=== PATIENT | female | born 1945 | race Caucasian/White ===

== ENCOUNTER 2020-12-27 15:40 | Inpatient (IN) ==
[2020-12-27] MEDS ORDERED: IOPAMIDOL 100 ML BOTTLE IV ONE (15:41)
--- NOTE | 2020-12-27 16:13 | EKG ---
[facility] Test Date: 2020-12-27 Pat Name: Rhys Alexander Department: ED Room: Gender: Female Access Clerk: : 1945 Requested By: Emmett Peterson Order Number: [id number] Reading MD: Jagdish Hamilton M.D. Measurements Intervals [place] Rate: 74 P: 9 [place]: 145 QRS: -55 QRSD: 97 T: 67 QT: 376 QTc: 418 Interpretive Statements Sinus rhythm Left anterior fascicular block Abnormal R-wave progression, early transition NO PRIOR TRACING FOR COMPARISON Electronically Signed On 12-27-2020 16:13:11 PDT by Jagdish Hamilton M.D. /store/[email or web address]/[id number]
--- NOTE | 2020-12-27 16:26 | Emergency Department Note ---
Altered Mental Status HPI General Chief Complaint: Altered Mental Status Stated Complaint: altered LOC Time Seen by Provider: 12/27/20 15:45 Source: patient and EMS Mode of arrival: EMS Limitations: altered mental status History of Present Illness HPI Narrative: 75-year-old female is seen evaluated for altered mental status and weakness. Patient has a history of bipolar disorder and sees Dr. Laguna for medication management. She recently increased her duloxetine from 30 to 60 mg a day, and added gabapentin 300 mg twice a day. This is a new change since last week. She remains on a stable dose of methylphenidate 10 mg daily. Patient was in her usual state of health until around noon yesterday when her h usband noted that she became less responsive and seemed more confused. When they woke up this morning she was significantly weak, not following directions, and confused. She does have a tremor at baseline, and facial akathisia, and family states these have not changed. She takes a low-dose statin, but no additional risk factors for stroke. Her mother had a stroke. She does have hypothyroidism, and her daughter tells me that they have struggled to manage this. Related Data Home Medications Medication Instructions Recorded Confirmed lovastatin 20 mg tablet 20 mg PO QDAY tab 02/06/18 11/22/20 aspirin 81 mg tablet,delayed 81 mg PO QDAY 02/17/20 11/22/20 release levothyroxine 75 mcg PO QDAY 12/27/20 12/27/20 Previous Rx's Medication Instructions Recorded divalproex 500 mg tablet,delayed See Rx Instructions .ROUTE 12/14/20 release .COMPLEX #60 tab duloxetine 60 mg capsule,delayed 60 mg PO QDAY #30 cap 12/14/20 release gabapentin 300 mg capsule 300 mg PO BID #30 cap 12/14/20 methylphenidate HCl 10 mg 10 mg PO QAM #14 tab 12/27/20 tablet,extended release Allergies Allergy/AdvReac Type Severity Reaction Status Date / Time [place] Allergy Unknown Unknown Verified 11/22/20 15:34 aripiprazole [From Abilify] AdvReac Unknown manic Verified 11/22/20 15:34 episode lurasidone [From Latuda] AdvReac Unknown Unknown Verified 11/22/20 15:34 Penicillins AdvReac Unknown Unknown Verified 11/22/20 15:34 Review of Systems ROS ROS Narrative: Narrative: All systems ED: reviewed and negative except as stated. [facility] Narrative Patient History Narrative: Narrative: Medical/Surgical/Family History All Active Problems (Updated 12/27/20 @ 18:32 by Sonja Yeung PA-C) [place] toxicity (Chronic) Osteoporosis (Chronic) Obesity (Chronic) Obstructive sleep apnea (Chronic) Vitamin D deficiency (Chronic) Bipolar disorder (Chronic) Hyperthyroidism (Chronic) Menopausal and postmenopausal disorder (Chronic) Hypertension (Chronic) Tremor (Chronic) Edema (Chronic) Age-related osteoporosis without current pathological fracture (Chronic) Hormone replacement therapy (Chronic) History of total hysterectomy with bilateral salpingo-oophorectomy (BSO) (Chronic ~06/15/84) Polydipsia (Chronic) CPAP (continuous positive airway pressure) dependence (Chronic) Fatigue (Chronic) Dry eye (Chronic) Snoring (Chronic) Acute hemorrhoid (Chronic) Constipation (Chronic) Altered mental status (Chronic) Insomnia (Chronic) Urine retention (Chronic) H/O eye surgery (Acute ~03/16/1958) Acute prerenal azotemia (Chronic) Depression (Chronic) Hypothyroidism (Chronic) Anemia of chronic disease (Chronic) CHF (congestive heart failure) (Chronic) Renal insufficiency (Chronic) Bradycardia (Chronic) Dyslipidemia (Chronic) Risk for falls (Chronic) History of back surgery (Chronic) H/O cataract extraction (Chronic ~2015) S/P [place]ICA-BSO (Chronic) Seizures (Chronic) Cognitive disorder (Chronic) Tardive dyskinesia (Chronic) History of colonoscopy (Chronic ~2011) ADHD (Chronic) On care home drug therapy (Acute) Bipolar 1 disorder (Acute) Hypothyroidism (Acute) Tardive dyskinesia (Acute) Mild cognitive impairment with memory loss (Acute) Major depression, recurrent, chronic (Acute) Hypothyroidism (Acute) Secondary polycythemia (Chronic) Hypercholesterolemia (Chronic) Stroke (Acute) AMS (altered mental status) (Acute) Medical History Acute hemorrhoid Acute prerenal azotemia Dehydration and hyponatremia resolved by hospitalization and stopping lithium ADHD Age-related osteoporosis without current pathological fracture Altered mental status Anemia of chronic disease Bipolar disorder Type 1 Bradycardia Cataract, left eye CHF (congestive heart failure) Cognitive disorder Constipation CPAP (continuous positive airway pressure) dependence Depression Dry eye Dyslipidemia Edema Fatigue Hormone replacement therapy Hypercholesterolemia Hypertension Hyperthyroidism Hypothyroidism Insomnia [place] toxicity January 2018 associated with prerenal azotemia and hyponatremia which would increase serum level of Li. Resolved with hydration and discontinuation of LiCO3 Menopausal and postmenopausal disorder Obesity Obstructive sleep apnea Osteoporosis Polydipsia Renal insufficiency Risk for falls Secondary polycythemia Seizures Snoring Tardive dyskinesia Tremor Vitamin D deficiency Surgical History H/O cataract extraction (~2015) H/O eye surgery (~03/16/1958) Left History of back surgery History of colonoscopy (~2011) History of total hysterectomy with bilateral salpingo-oophorectomy (BSO) (~06/15/84) S/P [place]-BSO Family History Father , Age 78 Alcohol abuse HTN (hypertension) Prostate cancer Grandfather Alcohol abuse Maternal and Paternal Mother , Age 72 Arthritis Heart disease, congenital HTN (hypertension) Breast cancer Stroke Grandmother Arthritis Maternal Brother Diabetes mellitus, type II Dementia Mental disorder Stroke Other Cancer Social History Smoking Status: Never smoker Alcohol Intake Frequency: does not drink Substance Use: does not use Exam General Limitations: altered mental status General appearance: Present alert, in no apparent distress and nontoxic Head Head: Present normocephalic and normal inspection Eye Eye: Present normal appearance, PERRL and visual romo intact Chest Chest: Present symmetric chest wall rise Respiratory Respiratory: Present normal lung sounds bilaterally Cardiovascular Cardiovascular: Present regular rate, normal rhythm and normal heart sounds Adbominal Abdominal: Present soft; Absent tenderness Extremities Extremities: Present normal inspection and full ROM; Absent tenderness Neurological Neurological: Present alert and CN II-XII intact; Absent oriented X3 and motor sensory deficit Psychiatric Psychiatric: Present flat affect Course Course Course Narrative: 75-year-old female presents with altered mental status and weakness Reevaluation(s) Reevaluation #1: Obtain basic labs, CBC, CMP Repeat head CT to rule out intracranial causes for her altered mental status Reevaluation #2: CT shows subacute right frontal lobe infarct, no new acute hemorrhage, no lesions We will order a CTA of the head and neck to query large vessel occlusion Neurology consult at [facility] pending Reevaluation #3: Head and neck CTA are negative for large vessel occlusions or ICA stenosis. I spoken with the neurologist, Dr. Cisneros and he is recommending [facility] for stroke work-up with echocardiogram, initiation of dual antiplatelet therapy x21 days, and atorvastatin 40 mg daily. I spoken with the hospitalist at [facility], Dr. Berger, and he is excepting her for admission. Vital Signs Vital signs: Vital Signs Temperature 101.1 F H 12/27/20 15:44 Pulse Rate 76 12/27/20 15:44 Respiratory Rate 18 12/27/20 15:44 Blood Pressure 120/76 12/27/20 15:44 Pulse Oximetry (%) 96 12/27/20 15:44 Temperature 101.4 F H 12/27/20 18:01 Pulse Rate 73 12/27/20 18:16 Respiratory Rate 22 12/27/20 19:01 Blood Pressure 128/61 12/27/20 19:01 Pulse Oximetry (%) 97 12/27/20 18:16 MDM MDM Narrative Medical decision making narrative: Altered mental status Subacute right frontal lobe infarct Patient is been signed out to Dr. Berger for admission and stroke work-up. Dual antiplatelet therapy has been initiated here in the ER. Medication list is pending update. Question of whether she remains on Depakote or not. Remaining medication list is up-to-date. Lab Data Result diagrams: 12/27/20 16:26 12/27/20 16:26 Labs: Lab Results 12/27/20 12/27/20 12/27/20 Range/Units 16:26 16:26 16:26 WBC 9.9 (4.5-11.0) K/mcL RBC 3.64 L (4.00-5.20) M/mcL Hgb 11.4 L (12.0-15.0) g/dL Hct 34.2 L (36.0-48.0) % MCV 94.0 (80.0-100.0) fL MCH 31.3 (26.0-34.0) pg MCHC 33.3 (31.0-36.0) g/dL RDW 13.2 (11.5-14.5) % Plt Count 148 (140-440) K/mcL MPV 9.3 (7.4-10.4) fL Neut % (Auto) 72.8 (38.0-78.0) % Lymph % (Auto) 13.3 L (15.0-49.0) % [place] % (Auto) 13.7 H (1.0-12.0) % Eos % (Auto) 0.1 (0.0-7.0) % Baso % (Auto) 0.1 (0.0-2.0) % Lymph # (Auto) 1.32 L (1.50-4.80) K/mcL [place] # (Auto) 1.36 H (0.10-0.90) K/mcL Eos # (Auto) 0.01 (0.00-0.70) K/mcL Baso # (Auto) 0.01 (0.00-0.20) K/mcL Absolute Neutrophils 7.24 (1.80-8.00) K/mcL Sodium 135 (133-145) mmol/L Potassium 4.2 (3.3-5.1) mmol/L Chloride 100 (96-108) mmol/L Carbon Dioxide 23 (22-30) mmol/L Anion Gap 12.0 (8.0-16.0) BUN 16 (8-23) mg/dL Creatinine 0.9 (0.6-1.1) mg/dL GFR Calculation 62 Glucose 93 (70-105) mg/dL Calcium 8.9 (8.6-10.4) mg/dL Total Bilirubin 0.7 (0.1-1.0) mg/dL AST 12 (<32) U/L ALT 7 (<40) U/L Alkaline Phosphatase 63 (39-117) U/L Total Protein 6.2 (5.9-8.4) gm/dL Albumin 3.4 (3.2-5.2) gm/dL Globulin 2.8 (2.2-3.7) gm/dL Albumin/Globulin Ratio 1.2 (1.0-2.3) TSH 0.15 L (0.27-5.01) uIU/mL Urine Color Urine Appearance (Clear) Urine pH (5.0-9.0) Ur Specific [place] (1.000-1.035) Urine Protein (Negative) mg/dL Urine Glucose (UA) (Negative) mg/dL Urine Ketones (Negative) mg/dL Urine Occult Blood (Negative) mg/dL Urine Nitrate (Negative) Urine Bilirubin (Negative) mg/dL Urine Urobilinogen mg/dL Ur Leukocyte Esterase (Negative) /ug Urine RBC (0-3) /hpf Urine WBC (0-4) /hpf Ur Squamous Epith Cells (0-4) /hpf Urine Bacteria (0) /hpf Urine Mucus (None) /hpf Ur Culture Indicated? 12/27/20 Range/Units 18:00 WBC (4.5-11.0) K/mcL RBC (4.00-5.20) M/mcL Hgb (12.0-15.0) g/dL Hct (36.0-48.0) % MCV (80.0-100.0) fL MCH (26.0-34.0) pg MCHC (31.0-36.0) g/dL RDW (11.5-14.5) % Plt Count (140-440) K/mcL MPV (7.4-10.4) fL Neut % (Auto) (38.0-78.0) % Lymph % (Auto) (15.0-49.0) % [place] % (Auto) (1.0-12.0) % Eos % (Auto) (0.0-7.0) % Baso % (Auto) (0.0-2.0) % Lymph # (Auto) (1.50-4.80) K/mcL [place] # (Auto) (0.10-0.90) K/mcL Eos # (Auto) (0.00-0.70) K/mcL Baso # (Auto) (0.00-0.20) K/mcL Absolute Neutrophils (1.80-8.00) K/mcL Sodium (133-145) mmol/L Potassium (3.3-5.1) mmol/L Chloride (96-108) mmol/L Carbon Dioxide (22-30) mmol/L Anion Gap (8.0-16.0) BUN (8-23) mg/dL Creatinine (0.6-1.1) mg/dL GFR Calculation Glucose (70-105) mg/dL Calcium (8.6-10.4) mg/dL Total Bilirubin (0.1-1.0) mg/dL AST (<32) U/L ALT (<40) U/L Alkaline Phosphatase (39-117) U/L Total Protein (5.9-8.4) gm/dL Albumin (3.2-5.2) gm/dL Globulin (2.2-3.7) gm/dL Albumin/Globulin Ratio (1.0-2.3) TSH (0.27-5.01) uIU/mL Urine Color Yellow Urine Appearance Cloudy A (Clear) Urine pH 6.0 (5.0-9.0) Ur Specific [place] 1.005 (1.000-1.035) Urine Protein 30 A (Negative) mg/dL Urine Glucose (UA) Negative (Negative) mg/dL Urine Ketones Negative (Negative) mg/dL Urine Occult Blood 0.20 (Negative) mg/dL Urine Nitrate Negative (Negative) Urine Bilirubin Negative (Negative) mg/dL Urine Urobilinogen Negative mg/dL Ur Leukocyte Esterase 500 A (Negative) /ug Urine RBC 36 H (0-3) /hpf Urine WBC > 182 H (0-4) /hpf Ur Squamous Epith Cells 0 (0-4) /hpf Urine Bacteria Mod A (0) /hpf Urine Mucus Few A (None) /hpf Ur Culture Indicated? yes ED POC Tests ED POC Tests: JUSTINE - SARS Antigen Negative Discharge Plan Patient/Caregiver Discharge Instructions Pt seen by INJECTION PRESS OPERATOR/PA only: Yes Clinical Impression: Stroke, AMS (altered mental status) Patient Disposition: Xfer As Inpt ([facility]) Condition: Fair Follow up with: Koel Lyons MD [Primary Care Provider] - Prescriptions: No Action divalproex 500 mg tablet,delayed release (DR/EC) See Rx Instructions .ROUTE .COMPLEX Qty: 60 RF: 0 duloxetine 60 mg capsule,delayed release(DR/EC) 60 mg PO QDAY Qty: 30 RF: 0 gabapentin 300 mg capsule 300 mg PO BID Qty: 30 RF: 0 methylphenidate HCl 10 mg tablet extended release 10 mg PO QAM Qty: 14 RF: 0 lovastatin 20 mg tablet 20 mg PO QDAY RF: 0 aspirin [Adult Aspirin Regimen] 81 mg tablet,delayed release (DR/EC) 81 mg PO QDAY RF: 0 levothyroxine 75 mcg Tablet 75 mcg PO QDAY RF: 0
[2020-12-27 17:01] LABS: Basophils # (Auto) 0.01 K/mcL (0.00-0.20); Basophils % (Auto) 0.1 % (0.0-2.0); Eosinophils # (Auto) 0.01 K/mcL (0.00-0.70); Eosinophils % (Auto) 0.1 % (0.0-7.0); Hematocrit 34.2 % (36.0-48.0); Hemoglobin 11.4 g/dL (12.0-15.0); Lymphocytes # (Auto) 1.32 K/mcL (1.50-4.80); Lymphocytes % (Auto) 13.3 % (15.0-49.0); Mean Corpuscular HGB Conc 33.3 g/dL (31.0-36.0); Mean Platelet Volume 9.3 fL (7.4-10.4); Monocytes # (Auto) 1.36 K/mcL (0.10-0.90); Monocytes % (Auto) 13.7 % (1.0-12.0); Neutrophils % (Auto) 72.8 % (38.0-78.0); Platelet Count 148 K/mcL (140-440); RBC 3.64 M/mcL (4.00-5.20); Red Cell Distribution Width 13.2 % (11.5-14.5); WBC 9.9 K/mcL (4.5-11.0)
[2020-12-27 17:17] LABS: ALT/SGPT 7 U/L (<40); AST/SGOT 12 U/L (<32); Albumin 3.4 gm/dL (3.2-5.2); Albumin/Globulin Ratio 1.2 (1.0-2.3); Alkaline Phosphatase 63 U/L (39-117); Bilirubin,Total 0.7 mg/dL (0.1-1.0); Blood Urea Nitrogen 16 mg/dL (8-23); Calcium 8.9 mg/dL (8.6-10.4); Carbon Dioxide 23 mmol/L (22-30); Chloride 100 mmol/L (96-108); Globulin 2.8 gm/dL (2.2-3.7); Glomerular Filtration Rate 62; Glucose 93 mg/dL (70-105)
--- NOTE | 2020-12-27 17:26 | Cat Scan Report ---
History: Increased confusion, neurologic changes, bipolar disorder of technique: The brain was imaged without contrast at 2.5 mm intervals. Radiation exposure was limited using dose reduction technology. There is a low-attenuation lesion in the moss radiata lateral to the head of the right caudate nucleus. It measures 9 x 13 mm. It has no mass effect. There is underlying degenerative change with moderate atrophy both above and below the tentorium. There are subtle areas of decreased attenuation in the centrum semiovale in both frontal lobes consistent with age-related ischemia or degeneration. Is no hemorrhage or mass effect. The ventricles are prominent but proportionate to the atrophy. There is no abnormal extra-axial fluid collection. Bone windows show no skull lesion. There is low-grade bilateral ethmoid sinusitis. IMPRESSION: Subacute infarct in the right frontal lobe lateral to the head of the right caudate nucleus. Sonja Yeung was called with the report Interpreted and Authenticated by: Geraldo Ngo 12/27/20
--- NOTE | 2020-12-27 18:08 | Cat Scan Report ---
History: Altered mental status, subacute infarct in the right moss radiata TECHNIQUE: Following injection of intravenous nonionic contrast arterial phase images were acquired of the head and neck. Sagittal and coronal reformats are created along with curvilinear reformatted images. Radiation exposure was limited using dose reduction technology. FINDINGS: NECK: There is a small amount of calcified plaque along the wall of the aortic arch. Great vessels arising from the arch are normal without evidence of plaque formation or stenosis. The common carotid arteries are normal. Carotid bifurcations are normal. Moderate tortuosity is present in both internal carotids. There is no plaque formation, stenosis or dissection in either carotid. The vertebral arteries are normal and nearly symmetric.6 passes no neck mass. No abnormally enlarged lymph nodes are present. There is degenerative disc disease and arthritis from C2-3 through C6-7. Head: [place] is normal. The anterior and middle cerebral arteries are normal. Basilar artery, cerebellar and posterior cerebral arteries are normal and symmetric. There is no evidence of stenosis or intracranial thrombosis. No aneurysm or vascular malformation are present. Subacute moderate size infarct is seen in the right moss radiata, unchanged from the preceding unenhanced head CT. No vascular anomaly is seen in the region of the infarct. IMPRESSION: Normal arteries in the neck and head, without evidence of atherosclerosis or thrombosis. Interpreted and Authenticated by: Geraldo Ngo 12/27/20
[2020-12-27] MEDS ORDERED: ASPIRIN 81 MG TAB.CHEW CHEWED ONE ×3 (18:22→19:35)
[2020-12-27] MEDS ORDERED: CLOPIDOGREL 75 MG TABLET PO ONE (18:22)
[2020-12-27 18:44] LABS: Appearance,Urine CLOUDY (Clear); Bacteria,Urine MOD /hpf (0); Bilirubin,Urine Negative (Negative); Color,Urine YELLOW; Culture Indicated,Urine yes; Glucose,Urine (UA) Negative (Negative); Ketones,Urine Negative (Negative); Leukocyte Esterase,Urine 500 /ug (Negative); Mucus,Urine FEW /hpf; Nitrate,Urine Negative (Negative); Protein,Urine 30 mg/dL (Negative); Specific Gravity,Urine 1.005 (1.000-1.035); Urine RBC 36 /hpf (0-3); Urine Squamous Epithelial Cell 0 /hpf (0-4); Urine WBC > 182 /hpf (0-4); Urobilinogen,Urine Negative
--- NOTE | 2020-12-27 19:27 | Internal Med History&Physical ---
HPI History of Present Illness Patient information: Note initiated : 12/27/20 at 7:18 pm Service Date, if different from initiated Date: [] Patient: Rhys Alexander a 75 y/o F admitted on for altered LOC. Chief Complaint: [] History of present illness: Ms. Alexander is a 75 year old F Presents the ED with confusion and decreased responsiveness. Patient was last seen normal yesterday. This morning when her got her up and to the chair gives her medications she slumped in the chair and even wide-eyed look and was poorly responsive. EMS was called patient was brought to the ED. CT brain was done which showed a subacute infarct in the right frontal lobe. EKG per was sinus, no history of stroke before. She is on aspirin for preventative. She does complain of urgency. And urinalysis in the ED was consistent with UTI. She has a baseline tremor. She is generally weak no focal weakness. No vision changes. Her levothyroxine dose was decreased from what sounds to be 88 to 75 about a week ago. She has been on a baby aspirin for preventative measures. Review of Systems: Pertinent positives as above. Denies headache/fever/chills/nausea/vomiting/chest or abdominal pain/cough/dyspnea/diarrhea. Remaining 10 point review of system reviewed negative. PFSH PFSH All Active Problems (Updated 12/27/20 @ 18:32 by Sonja Yeung PA-C) [place] toxicity (Chronic) Osteoporosis (Chronic) Obesity (Chronic) Obstructive sleep apnea (Chronic) Vitamin D deficiency (Chronic) Bipolar disorder (Chronic) Hyperthyroidism (Chronic) Menopausal and postmenopausal disorder (Chronic) Hypertension (Chronic) Tremor (Chronic) Edema (Chronic) Age-related osteoporosis without current pathological fracture (Chronic) Hormone replacement therapy (Chronic) History of total hysterectomy with bilateral salpingo-oophorectomy (BSO) (Chronic ~06/15/84) Polydipsia (Chronic) CPAP (continuous positive airway pressure) dependence (Chronic) Fatigue (Chronic) Dry eye (Chronic) Snoring (Chronic) Acute hemorrhoid (Chronic) Constipation (Chronic) Altered mental status (Chronic) Insomnia (Chronic) Urine retention (Chronic) H/O eye surgery (Acute ~03/16/1958) Acute prerenal azotemia (Chronic) Depression (Chronic) Hypothyroidism (Chronic) Anemia of chronic disease (Chronic) CHF (congestive heart failure) (Chronic) Renal insufficiency (Chronic) Bradycardia (Chronic) Dyslipidemia (Chronic) Risk for falls (Chronic) History of back surgery (Chronic) H/O cataract extraction (Chronic ~2015) S/P MONICA-BSO (Chronic) Seizures (Chronic) Cognitive disorder (Chronic) Tardive dyskinesia (Chronic) History of colonoscopy (Chronic ~2011) ADHD (Chronic) On terminal system operator drug therapy (Acute) Bipolar 1 disorder (Acute) Hypothyroidism (Acute) Tardive dyskinesia (Acute) Mild cognitive impairment with memory loss (Acute) Major depression, recurrent, chronic (Acute) Hypothyroidism (Acute) Secondary polycythemia (Chronic) Hypercholesterolemia (Chronic) Stroke (Acute) AMS (altered mental status) (Acute) Medical History Acute hemorrhoid Acute prerenal azotemia Dehydration and hyponatremia resolved by hospitalization and stopping lithium ADHD Age-related osteoporosis without current pathological fracture Altered mental status Anemia of chronic disease Bipolar disorder Type 1 Bradycardia Cataract, left eye CHF (congestive heart failure) Cognitive disorder Constipation CPAP (continuous positive airway pressure) dependence Depression Dry eye Dyslipidemia Edema Fatigue Hormone replacement therapy Hypercholesterolemia Hypertension Hyperthyroidism Hypothyroidism Insomnia [place] toxicity January 2018 associated with prerenal azotemia and hyponatremia which would increase serum level of Li. Resolved with hydration and discontinuation of LiCO3 Menopausal and postmenopausal disorder Obesity Obstructive sleep apnea Osteoporosis Polydipsia Renal insufficiency Risk for falls Secondary polycythemia Seizures Snoring Tardive dyskinesia Tremor Vitamin D deficiency Surgical History H/O cataract extraction (~2015) H/O eye surgery (~03/16/1958) Left History of back surgery History of colonoscopy (~2011) History of total hysterectomy with bilateral salpingo-oophorectomy (BSO) (~06/15/84) S/P [place]ICA-BSO Family History Father , Age 78 Alcohol abuse HTN (hypertension) Prostate cancer Grandfather Alcohol abuse Maternal and Paternal Mother , Age 72 Arthritis Heart disease, congenital HTN (hypertension) Breast cancer Stroke Grandmother Arthritis Maternal Brother Diabetes mellitus, type II Dementia Mental disorder Stroke Other Cancer Social History (Updated 12/08/20 @ 13:56 by Radha Styles) marital status: unknown pets and animals: Yes alcohol intake frequency: does not drink substance use type: does not use MEDS/ALLERGIES Home Medications and Allergies Home Medications Medication Instructions Recorded Confirmed Type lovastatin 20 mg tablet 20 mg PO QDAY tab 02/06/18 12/27/20 History aspirin 81 mg tablet,delayed 81 mg PO QDAY 02/17/20 12/27/20 History release divalproex 500 mg tablet,delayed See Rx Instructions .ROUTE 12/14/20 12/27/20 Rx release .COMPLEX #60 tab duloxetine 60 mg capsule,delayed 60 mg PO QDAY #30 cap 12/14/20 12/27/20 Rx release gabapentin 300 mg capsule 300 mg PO BID #30 cap 12/14/20 12/27/20 Rx levothyroxine 75 mcg PO QDAY 12/27/20 12/27/20 History methylphenidate HCl 10 mg 10 mg PO QAM #14 tab 12/27/20 12/27/20 Rx tablet,extended release Allergies Allergy/AdvReac Type Severity Reaction Status Date / Time [place] Allergy Unknown Unknown Verified 11/22/20 15:34 aripiprazole [From Abilify] AdvReac Unknown manic Verified 11/22/20 15:34 episode lurasidone [From Latuda] AdvReac Unknown Unknown Verified 11/22/20 15:34 Penicillins AdvReac Unknown Unknown Verified 11/22/20 15:34 EXAM Constitutional Vitals: Temp Pulse Resp BP Pulse Ox 101.4 F H 73 22 128/61 97 12/27/20 18:01 12/27/20 18:16 12/27/20 19:01 12/27/20 19:01 12/27/20 18:16 Exam: General: Alert, Awake, No acute Distress Eyes/N/T: EOMI, PERRL, Head/Neck: neck supple, normocephalic atraumatic CV: RRR, No murmurs, normal s1/s2 Pulm: Clear b/l, no wheezing/rhonchi/rales Abd: soft, nontender, +BS x4 Ext: no clubbing/cyanosis/edema Neuro: Alert, she had symmetrical face. Her speech was clear although slow to answer me. Symmetrical strength and sensations. No pronator drift. sHe followed commands. Skin: warm/dry DATA Data Completed and Pending Labs: Labs from last 24 hours 12/27/20 12/27/20 12/27/20 18:00 16:26 16:26 WBC RBC Hgb Hct MCV MCH MCHC RDW Plt Count MPV Neut % (Auto) Lymph % (Auto) [place] % (Auto) Eos % (Auto) Baso % (Auto) Lymph # (Auto) [place] # (Auto) Eos # (Auto) Baso # (Auto) Absolute Neutrophils Sodium 135 Potassium 4.2 Chloride 100 Carbon Dioxide 23 Anion Gap 12.0 BUN 16 Creatinine 0.9 GFR Calculation 62 Glucose 93 Calcium 8.9 Total Bilirubin 0.7 AST 12 ALT 7 Alkaline Phosphatase 63 Total Protein 6.2 Albumin 3.4 Globulin 2.8 Albumin/Globulin Ratio 1.2 TSH 0.15 L Urine Color Yellow Urine Appearance Cloudy A Urine pH 6.0 Ur Specific [place] 1.005 Urine Protein 30 A Urine Glucose (UA) Negative Urine Ketones Negative Urine Occult Blood 0.20 Urine Nitrate Negative Urine Bilirubin Negative Urine Urobilinogen Negative Ur Leukocyte Esterase 500 A Urine RBC 36 H Urine WBC > 182 H Ur Squamous Epith Cells 0 Urine Bacteria Mod A Urine Mucus Few A Ur Culture Indicated? yes 12/27/20 16:26 WBC 9.9 RBC 3.64 L Hgb 11.4 L Hct 34.2 L MCV 94.0 MCH 31.3 MCHC 33.3 RDW 13.2 Plt Count 148 MPV 9.3 Neut % (Auto) 72.8 Lymph % (Auto) 13.3 L [place] % (Auto) 13.7 H Eos % (Auto) 0.1 Baso % (Auto) 0.1 Lymph # (Auto) 1.32 L [place] # (Auto) 1.36 H Eos # (Auto) 0.01 Baso # (Auto) 0.01 Absolute Neutrophils 7.24 Sodium Potassium Chloride Carbon Dioxide Anion Gap BUN Creatinine GFR Calculation Glucose Calcium Total Bilirubin AST ALT Alkaline Phosphatase Total Protein Albumin Globulin Albumin/Globulin Ratio TSH Urine Color Urine Appearance Urine pH Ur Specific [place] Urine Protein Urine Glucose (UA) Urine Ketones Urine Occult Blood Urine Nitrate Urine Bilirubin Urine Urobilinogen Ur Leukocyte Esterase Urine RBC Urine WBC Ur Squamous Epith Cells Urine Bacteria Urine Mucus Ur Culture Indicated? A/P Narrative A/P Narrative: A: *CVA, right frontal lobe: -Case discussed with stroke neurologist who recommended DAPT for 21 days *Encephalopathy (confusion): 2/2 above + UTI *UTI: *Anemia, chronic: *Bipolar disorder: Follows with Dr. Laguna *Hypothyroidism: Levothyroxine lowered about a week ago by PCP 88 to 75mcg *JOHANA: stopped using CPAP P: -tele -DAPT x21 then continue plavix -increase statin -Permissive hypertension 24 to 48 hours -echo -Continue psych meds -Neuro checks -Rocephin pending UC -Case management for placement needs -PT/OT -ppx: Lovenox Full code Time Spent With Patient Time: Total time spent is greater than 50% in coordination of care (as documented) at patient's floor/unit and/or counseling patient:
[2020-12-27] MEDS ORDERED: SENNOSIDES 1 TABLET PO PRN (20:29)
[2020-12-27] MEDS ORDERED: POTASSIUM CHLORIDE 20 MEQ TABLET PO PRN ×2 (20:29)
[2020-12-27] MEDS ORDERED: POLYETHYLENE GLYCOL 3350 17 GM PACKET PO PRN (20:29)
[2020-12-27] MEDS ORDERED: ACETAMINOPHEN 325 MG TABLET PO PRN (20:29)
[2020-12-27] MEDS ORDERED: IPRATROPIUM/ALBUTEROL 3 ML AMPUL.NEB NEB PRN (20:29)
[2020-12-27] MEDS ORDERED: cefTRIAXone 1 GM in DEXTROSE 5% IN WATER 50 ML IV SCH (20:29)
[2020-12-27] MEDS ORDERED: POTASSIUM CHLORIDE 40 MEQ in DEXTROSE 5% IN WATER 500 ML IV PRN (20:29)
[2020-12-27] MEDS ORDERED: ONDANSETRON 4 MG/2 ML VIAL IV PRN (20:29)
[2020-12-27] MEDS ORDERED: MAGNESIUM SULFATE 2 GM/50 ML BAG IV PRN (20:29)
[2020-12-27] MEDS ORDERED: 0.9 % SODIUM CHLORIDE 1,000 ML IV SCH (20:29)
[2020-12-27] MEDS: 0.9 % SODIUM CHLORIDE 10 ML SYRINGE IV SCH (21:09)
[2020-12-27] MEDS: DOCUSATE SODIUM 100 MG CAPSULE PO SCH (21:22)
[2020-12-27] MEDS: cefTRIAXone 1 GM VIAL IV SCH (21:22)
[2020-12-27] MEDS: ATORVASTATIN 40 MG TABLET PO SCH (21:22)
[2020-12-27] MEDS: GABAPENTIN 300 MG CAPSULE PO SCH (21:22)
[2020-12-27] MEDS: DIVALPROEX SODIUM 250 MG TABLET PO SCH (21:36)
[2020-12-28] MEDS: 0.9 % SODIUM CHLORIDE 10 ML SYRINGE IV SCH ×4 (05:17→21:07)
[2020-12-28 07:06] LABS: ALT/SGPT 8 U/L (<40); AST/SGOT 13 U/L (<32); Albumin 3.2 gm/dL (3.2-5.2); Alkaline Phosphatase 66 U/L (39-117); Bilirubin,Direct < 0.2 mg/dL (0-0.3); Bilirubin,Total 0.6 mg/dL (0.1-1.0); Blood Urea Nitrogen 11 mg/dL (8-23); Calcium 8.9 mg/dL (8.6-10.4); Carbon Dioxide 24 mmol/L (22-30); Chloride 104 mmol/L (96-108); Globulin 3.2 gm/dL (2.2-3.7); Glomerular Filtration Rate 71; Glucose 112 mg/dL (70-105); Lactate Dehydrogenase 166 U/L (135-225); Phosphorous 2.8 mg/dL (2.5-4.5); Triglycerides 92 mg/dL (<150); Uric Acid 4.6 mg/dL (2.5-8.0)
[2020-12-28] MEDS: PANTOPRAZOLE 40 MG TABLET PO SCH (07:25)
--- NOTE | 2020-12-28 07:52 | Internal Med Progress Note ---
SUBJECTIVE Subjective Patient information: Note initiated : 12/28/20 at 7:50 am Service Date, if different from initiated Date: [] Patient: Rhys Alexander a 75 y/o F admitted on 12/27/20 for altered LOC. Chief Complaint: [] Interval history: History of present illness: Ms. Alexander is a 75 year old F Presents the ED with confusion and decreased responsiveness. Patient was last seen normal yesterday. This morning when her got her up and to the chair gives her medications she slumped in the chair and even wide-eyed look and was poorly responsive. EMS was called patient was brought to the ED. CT brain was done which showed a subacute infarct in the right frontal lobe. EKG per was sinus, no history of stroke before. She is on aspirin for preventative. She does complain of urgency. And urinalysis in the ED was consistent with UTI. She has a baseline tremor. She is generally weak no focal weakness. No vision changes. Her levothyroxine dose was decreased from what sounds to be 88 to 75 about a week ago. She has been on a baby aspirin for preventative measures. 12/28 No overnight event or new complaints. Review of Systems: denies headache/fever/chills/nausea/vomiting/chest or abdominal pain/cough/dyspnea/diarrhea. Otherwise see above. Constitutional Vitals: Vital Signs Temp Pulse Resp BP Pulse Ox 99.1 F H 71 21 132/62 94 12/28/20 04:01 12/28/20 04:01 12/28/20 04:01 12/28/20 04:01 12/28/20 04:01 Period Temp Pulse Resp BP Sys/[place] Pulse Ox Last 24 Hr 99.0 F-101.4 F 66-80 15-27 104-167/56-82 94-100 Intake and Output 12/27/20 12/28/20 12/28/20 21:59 05:59 13:59 Intake Total 600 1000 Output Total 1000 2024 1100 Balance -1000 -1425 -100 Weight 71.894 kg Intake & Output: Intake & Output 12/27/20 12/28/20 12/28/20 21:59 05:59 13:59 Intake Total 600 1000 Output Total 1000 2024 1100 Balance -1000 -1425 -100 Weight 71.894 kg Intake: IV 1000 Sodium Chloride 0.9% 1,000 ml @ 1000 100 mls/hr IV .Q10H [facility] Rx#: [id number] Oral 600 Output: Void Amount 999 2024 1099 Other: Meal Snack Percent of Meal Consumed 100% Feeding Ability Independent Urine Appearance Clear Cloudy Urine Color Bright Yellow Bright Yellow Bright Yellow Urine Odor Normal Stool Size Small Stool Color Yellow Stool Consistency Formed Exam: General: Alert, Awake, No acute Distress Eyes/N/T: EOMI, Head/Neck: neck supple, CV: RRR, No murmurs, Pulm: Clear b/l, no wheezing/rhonchi/rales Abd: soft, nontender, +BS x4 Ext: no clubbing/cyanosis/edema Neuro: Alert, she had symmetrical face. Her speech was clear although slow to answer me but improved. Symmetrical strength and sensations. No pronator drift. sHe followed commands. Skin: warm/dry OBJ DATA Labs CBC & Chem 7: 12/28/20 05:43 12/28/20 05:43 Labs: Abnormal Lab Results 12/28/20 12/27/20 12/27/20 05:43 18:00 16:26 RBC Hgb Hct Lymph % (Auto) [place] % (Auto) Lymph # (Auto) [place] # (Auto) Glucose 112 H TSH 0.15 L Urine Appearance Cloudy A Urine Protein 30 A Ur Leukocyte Esterase 500 A Urine RBC 36 H Urine WBC > 182 H Urine Bacteria Mod A Urine Mucus Few A 12/27/20 16:26 RBC 3.64 L Hgb 11.4 L Hct 34.2 L Lymph % (Auto) 13.3 L [place] % (Auto) 13.7 H Lymph # (Auto) 1.32 L [place] # (Auto) 1.36 H Glucose TSH Urine Appearance Urine Protein Ur Leukocyte Esterase Urine RBC Urine WBC Urine Bacteria Urine Mucus Meds: Medications Acetaminophen (Acetaminophen 325 Mg Tablet) 650 mg PO Q6HP PRN PRN Reason: PAIN/FEVER > 101 Albuterol/Ipratropium (Ipratropium/Albuterol 3 Ml Ampul.Neb) 3 ml NEB Q4HP PRN PRN Reason: Shortness Of Breath Aspirin (Aspirin 81 Mg Tab.Chew) 81 mg PO DAILY [facility] Atorvastatin Calcium (Atorvastatin 40 Mg Tablet) 40 mg PO HS [facility] Last Admin: 12/27/20 21:22 Dose: 40 mg Documented by: Ceftriaxone Sodium (Ceftriaxone 1 Gm Vial) 1 gm IV Q24H [facility] Last Admin: 12/27/20 21:22 Dose: 1 gm Documented by: Clopidogrel Bisulfate (Clopidogrel 75 Mg Tablet) 75 mg PO DAILY [facility] Divalproex Sodium (Divalproex Sodium 250 Mg Tablet) 500 mg PO BID [facility] Last Admin: 12/27/20 21:36 Dose: 500 mg Documented by: Docusate Sodium (Docusate Sodium 100 Mg Capsule) 100 mg PO BID [facility] Last Admin: 12/27/20 21:22 Dose: 100 mg Documented by: Duloxetine HCl (Duloxetine 30 Mg Capsule) 60 mg PO DAILY [facility] Enoxaparin Sodium (Enoxaparin 40 Mg/0.4 Ml Syringe) 40 mg SQ DAILY [facility] Gabapentin (Gabapentin 300 Mg Capsule) 300 mg PO BID [facility] Last Admin: 12/27/20 21:22 Dose: 300 mg Documented by: Potassium Chloride 40 meq/ (Dextrose) 520 mls @ 130 mls/hr IV UD PRN PRN Reason: Potassium < 3 Magnesium Sulfate (Magnesium Sulfate) 2 gm in 50 mls @ 50 mls/hr IV UD PRN PRN Reason: Magnesium </= 1.6 Levothyroxine Sodium (Levothyroxine 75 Mcg Tablet) 75 mcg PO QDAY [facility] Ondansetron HCl (Ondansetron 4 Mg/2 Ml Vial) 4 mg IV Q4HP PRN PRN Reason: Nausea And Vomiting Pantoprazole Sodium (Pantoprazole 40 Mg Tablet) 40 mg PO QAMAC [facility] Last Admin: 12/28/20 07:25 Dose: 40 mg Documented by: Methylphenidate Hcl 10 Mg Tablet Extended Release 1 dose PO QAM [facility] Polyethylene Glycol (Polyethylene Glycol 3350 17 Gm Packet) 17 gm PO DAILYP PRN PRN Reason: Constipation Potassium Chloride (Potassium Chloride 20 Meq Tablet) 40 meq PO UD PRN PRN Reason: Potssium is 3-3.5 Potassium Chloride (Potassium Chloride 20 Meq Tablet) 40 meq PO UD PRN PRN Reason: Potassium < 3 Senna (Sennosides 1 Tablet) 2 tab PO DAILYP PRN PRN Reason: Constipation Sodium Chloride (0.9 % Sodium Chloride 10 Ml Syringe) 10 ml IV Q8 [facility] Last Admin: 12/28/20 05:17 Dose: Not Given Documented by: A/P Narrative A/P Narrative: A: *CVA, right frontal lobe: -Case discussed with stroke neurologist who recommended DAPT for 21 days *Encephalopathy (confusion): 2/2 above + UTI *UTI: *Anemia, chronic: *Bipolar disorder: Follows with Dr. Laguna *Hypothyroidism: Levothyroxine lowered about a week ago by PCP 88 to 75mcg *JOHANA: stopped using CPAP P: -tele -DAPT x21 then continue plavix -increased statin -Permissive hypertension 24 to 48 hours -echo -Continue psych meds -Neuro checks -Rocephin pending -Case management for placement needs -PT/OT -ppx: Lovenox Full code Time Spent With Patient Time: Total time spent is greater than 50% in coordination of care (as documented) at patient's floor/unit and/or counseling patient: QUALITY Stroke Symptom Onset Unknown: No VTE Deep Vein Thrombosis/Pulmonary Embolism Present on Admission: No
[2020-12-28] MEDS: DIVALPROEX SODIUM 250 MG TABLET PO SCH ×2 (08:34→21:06)
[2020-12-28] MEDS: ENOXAPARIN 40 MG/0.4 ML SYRINGE SQ SCH (08:34)
[2020-12-28] MEDS: DULoxetine 30 MG CAPSULE PO SCH (08:34)
[2020-12-28] MEDS: ASPIRIN 81 MG TAB.CHEW PO SCH (08:35)
[2020-12-28] MEDS: DOCUSATE SODIUM 100 MG CAPSULE PO SCH ×2 (08:35→21:06)
[2020-12-28] MEDS: CLOPIDOGREL 75 MG TABLET PO SCH (08:35)
[2020-12-28] MEDS: LEVOTHYROXINE 75 MCG TABLET PO SCH (08:35)
[2020-12-28] MEDS: GABAPENTIN 300 MG CAPSULE PO SCH ×2 (08:35→21:06)
[2020-12-28] MEDS: cefTRIAXone 1 GM VIAL IV SCH (08:42)
[2020-12-28] MEDS ORDERED: METHYLPHENIDATE HCL 10 MG PO SCH (09:00)
[2020-12-28 10:03] LABS: Basophils % (Auto) 0 % (0.0-2.0); Eosinophils % (Auto) 0 % (0.0-7.0); Hematocrit 42.2 % (36.0-48.0); Mean Cell Volume 101.9 fL (80.0-100.0); Mean Corpuscular HGB Conc 30.8 g/dL (31.0-36.0); Mean Platelet Volume 9.6 fL (7.4-10.4); Platelet Count 131 K/mcL (140-440); RBC 4.14 M/mcL (4.00-5.20); Red Cell Distribution Width 13.5 % (11.5-14.5)
--- NOTE | 2020-12-28 10:49 | Discharge Summary ---
Discharge Provider Provider Patient information: Note initiated : 12/28/20 at 10:48 am Service Date, if different from initiated Date: [] Patient: Rhys Alexander 75 y/o F admitted on 12/27/20 for altered LOC. Chief Complaint: [] Date of admission: 12/27/20 20:25 Discharge date: 12/29/20 Primary care physician: Kole Lyons Consults: 12/27/20 Consult to Physician [CONS] Stat Comment: Consulting Provider: Casper Berger Reason For Exam: Physician to Consult Discharge Meds Discharge Medications Home Medications divalproex 500 mg tablet,delayed release See Rx Instructions .ROUTE .COMPLEX #60 tab 12/14/20 [Rx Confirmed 12/27/20 Last Taken Unknown] duloxetine 60 mg capsule,delayed release 60 mg PO QDAY #30 cap 12/14/20 [Rx Confirmed 12/27/20 Last Taken Unknown] gabapentin 300 mg capsule 300 mg PO BID #30 cap 12/14/20 [Rx Confirmed 12/27/20 Last Taken Unknown] levothyroxine 75 mcg PO QDAY 12/27/20 [History Confirmed 12/27/20 Last Taken Unknown] aspirin 81 mg PO DAILY #30 tab 12/28/20 [Rx Last Taken Unknown] atorvastatin 40 mg PO HS #30 tab 12/28/20 [Rx Last Taken Unknown] clopidogrel 75 mg PO DAILY #60 tab 12/28/20 [Rx Last Taken Unknown] ciprofloxacin HCl [Cipro] 500 mg PO BID #4 tab 12/29/20 [Rx Last Taken Unknown] COURSE Hospital Course Hospital course: Interval history: History of present illness: Ms. Alexander is a 75 year old F Presents the ED with confusion and decreased responsiveness. Patient was last seen normal yesterday. This morning when her got her up and to the chair gives her medications she slumped in the chair and even wide-eyed look and was poorly responsive. EMS was called patient was brought to the ED. CT brain was done which showed a subacute infarct in the right frontal lobe. EKG per was sinus, no history of stroke before. She is on aspirin for preventative. She does complain of urgency. And urinalysis in the ED was consistent with UTI. She has a baseline tremor. She is generally weak no focal weakness. No vision changes. Her levothyroxine dose was decreased from what sounds to be 88 to 75 about a week ago. She has been on a baby aspirin for preventative measures. 12/28 No overnight event or new complaints. 12/29 Patient stable no changes overnight event or new complaints. A: *CVA, right frontal lobe: -Case discussed with stroke neurologist who recommended DAPT for 21 days *Encephalopathy (confusion): 2/2 above + UTI *UTI: *Anemia, chronic: *Bipolar disorder: Follows with Dr. Laguna *Hypothyroidism: Levothyroxine lowered about a week ago by PCP 88 to 75mcg *JOHANA: stopped using CPAP Discharge diagnosis: CVA encephalopathy UTI Secondary discharge diagnosis: Chronic anemia bipolar disorder hypothyroidism obstructive sleep apnea Time Spent with Patient Time attestation: Total time spent providing and/or coordinating discharge services: Time spent: Greater than 30 minutes EXAM Constitutional Vitals: Temp Pulse Resp BP Pulse Ox 99.7 F H 72 24 H 131/70 95 12/28/20 08:01 12/28/20 08:19 12/28/20 08:19 12/28/20 08:01 12/28/20 08:19 Discharge Data Data Completed and Pending Labs on day of discharge: Labs from last 24 hours 12/28/20 12/28/20 12/27/20 05:43 05:43 18:00 WBC 8.0 RBC 4.14 Hgb 13.0 Hct 42.2 MCV 101.9 H MCH 31.4 MCHC 30.8 L RDW 13.5 Plt Count 131 L MPV 9.6 Neut % (Auto) 75.0 Lymph % (Auto) 13.0 L [place] % (Auto) 11.0 Eos % (Auto) 0 Baso % (Auto) 0 Lymph # (Auto) TNP [place] # (Auto) TNP Eos # (Auto) TNP Baso # (Auto) TNP Absolute Neutrophils TNP Sodium 139 Potassium 3.9 Chloride 104 Carbon Dioxide 24 Anion Gap 11.0 BUN 11 Creatinine 0.8 GFR Calculation 71 Glucose 112 H Uric Acid 4.6 Calcium 8.9 Phosphorus 2.8 Magnesium 1.9 Total Bilirubin 0.6 Direct Bilirubin < 0.2 GGT 14 AST 13 ALT 8 Alkaline Phosphatase 66 Lactate Dehydrogenase 166 Total Protein 6.4 Albumin 3.2 Globulin 3.2 Albumin/Globulin Ratio 1.0 Triglycerides 92 TSH Urine Color Yellow Urine Appearance Cloudy A Urine pH 6.0 Ur Specific [place] 1.005 Urine Protein 30 A Urine Glucose (UA) Negative Urine Ketones Negative Urine Occult Blood 0.20 Urine Nitrate Negative Urine Bilirubin Negative Urine Urobilinogen Negative Ur Leukocyte Esterase 500 A Urine RBC 36 H Urine WBC > 182 H Ur Squamous Epith Cells 0 Urine Bacteria Mod A Urine Mucus Few A Ur Culture Indicated? yes 12/27/20 12/27/20 12/27/20 16:26 16:26 16:26 WBC 9.9 RBC 3.64 L Hgb 11.4 L Hct 34.2 L MCV 94.0 MCH 31.3 MCHC 33.3 RDW 13.2 Plt Count 148 MPV 9.3 Neut % (Auto) 72.8 Lymph % (Auto) 13.3 L [place] % (Auto) 13.7 H Eos % (Auto) 0.1 Baso % (Auto) 0.1 Lymph # (Auto) 1.32 L [place] # (Auto) 1.36 H Eos # (Auto) 0.01 Baso # (Auto) 0.01 Absolute Neutrophils 7.24 Sodium 135 Potassium 4.2 Chloride 100 Carbon Dioxide 23 Anion Gap 12.0 BUN 16 Creatinine 0.9 GFR Calculation 62 Glucose 93 Uric Acid Calcium 8.9 Phosphorus Magnesium Total Bilirubin 0.7 Direct Bilirubin GGT AST 12 ALT 7 Alkaline Phosphatase 63 Lactate Dehydrogenase Total Protein 6.2 Albumin 3.4 Globulin 2.8 Albumin/Globulin Ratio 1.2 Triglycerides TSH 0.15 L Urine Color Urine Appearance Urine pH Ur Specific [place] Urine Protein Urine Glucose (UA) Urine Ketones Urine Occult Blood Urine Nitrate Urine Bilirubin Urine Urobilinogen Ur Leukocyte Esterase Urine RBC Urine WBC Ur Squamous Epith Cells Urine Bacteria Urine Mucus Ur Culture Indicated? Discharge Plan Patient/Caregiver Discharge Instructions Activity: increase activity as tolerated Diet: Regular Diet Prescriptions: New atorvastatin 40 mg Tablet 40 mg PO HS Qty: 30 RF: 0 clopidogrel 75 mg Tablet 75 mg PO DAILY Qty: 60 RF: 0 aspirin 81 mg Tablet,Chewable 81 mg PO DAILY Qty: 30 RF: 0 ciprofloxacin HCl [Cipro] 500 mg tablet 500 mg PO BID Qty: 4 RF: 0 Continued divalproex 500 mg tablet,delayed release (DR/EC) See Rx Instructions .ROUTE .COMPLEX Qty: 60 RF: 0 duloxetine 60 mg capsule,delayed release(DR/EC) 60 mg PO QDAY Qty: 30 RF: 0 gabapentin 300 mg capsule 300 mg PO BID Qty: 30 RF: 0 levothyroxine 75 mcg Tablet 75 mcg PO QDAY RF: 0 Discontinued lovastatin 20 mg tablet 20 mg PO QDAY RF: 0 aspirin [Adult Aspirin Regimen] 81 mg tablet,delayed release (DR/EC) 81 mg PO QDAY RF: 0 Follow Up Plan Follow up with: Kole Lyons MD [Primary Care Provider] - Patient Disposition: Home Health Service Prognosis: Fair Rehab Potential: Fair Overall status at discharge: patient is progressing back to baseline Discharge Orders: Discharge Order (Routine); Ordered 12/29/20 [facility] Thrombosis/Pulmonary Embolism Present on Admission: No
[2020-12-28] MEDS: ATORVASTATIN 40 MG TABLET PO SCH (21:06)
[2020-12-29] MEDS: 0.9 % SODIUM CHLORIDE 10 ML SYRINGE IV SCH (05:27)
[2020-12-29] MEDS: PANTOPRAZOLE 40 MG TABLET PO SCH (07:48)
[2020-12-29] MEDS: LEVOTHYROXINE 75 MCG TABLET PO SCH (07:48)
[2020-12-29] MEDS: DIVALPROEX SODIUM 250 MG TABLET PO SCH (08:48)
[2020-12-29] MEDS: cefTRIAXone 1 GM VIAL IV SCH (08:48)
[2020-12-29] MEDS: ENOXAPARIN 40 MG/0.4 ML SYRINGE SQ SCH (08:48)
[2020-12-29] MEDS: CLOPIDOGREL 75 MG TABLET PO SCH (08:49)
[2020-12-29] MEDS: DULoxetine 30 MG CAPSULE PO SCH (08:49)
[2020-12-29] MEDS: ASPIRIN 81 MG TAB.CHEW PO SCH (08:49)
[2020-12-29] MEDS: GABAPENTIN 300 MG CAPSULE PO SCH (08:49)
[2020-12-29] MEDS: DOCUSATE SODIUM 100 MG CAPSULE PO SCH (08:49)
== END 2020-12-29 11:10 | disposition home health service (06) | DRG 65 ==
LOC: ED 15:40 → ICU 20:25
PROVIDERS: ADMIT Internal Medicine; ATTEND Internal Medicine